=== PATIENT | female | born 1995 | race Caucasian/White ===

== ENCOUNTER 2022-02-13 12:00 | Inpatient (IN) ==
[2022-02-13] MEDS ORDERED: Azithromycin 500 MG in 0.9 % Sodium Chloride 250 ML IVPB PRN (12:38)
[2022-02-13] MEDS ORDERED: Metoclopramide 10 MG/2 ML VIAL IVP PRN (12:38)
[2022-02-13] MEDS ORDERED: miSOPROStoL 25 MCG TABLET PO PRN (12:38)
[2022-02-13] MEDS ORDERED: *HR* Nalbuphine 10 MG/ML AMPUL IV PRN (12:38)
[2022-02-13] MEDS ORDERED: Ondansetron 4 MG/2 ML VIAL IVP PRN (12:38)
[2022-02-13] MEDS ORDERED: Famotidine 20 MG/2 ML VIAL IVP PRN (12:38)
[2022-02-13] MEDS ORDERED: Naloxone 0.4 MG/ML INJ IVP PRN (12:38)
[2022-02-13 13:18] LABS: Basophils # 0.1 K/mcL (0.0-0.2); Basophils % 0.4 %; Eosinophils % 0.2 %; Hematocrit 33.9 % (35.3-44.9); Hemoglobin 11.5 g/dL (11.5-15.4); Immature Granulocytes % 0.7 % (0-4); Lymphocytes # 2.1 K/mcL (0.6-4.6); Lymphocytes % 16.9 %; Mean Corpuscular HGB Conc 33.9 g/dL (31.6-35.5); Mean Corpuscular Volume 91.4 fL (83.0-100.0); Mean Platelet Volume 11.3 fL (9.4-12.4); Monocytes # 0.7 K/mcL (0.0-1.3); Monocytes % 5.9 %; Neutrophils # 9.2 K/mcL (1.6-8.9); Nucleated Red Blood Cells 0.2 /100 WBC (0); Platelet Count 211 K/mcL (140-400); Red Blood Count 3.71 M/mcL (3.82-4.97); Red Cell Distribution Width 14.5 % (11.5-14.5); Segmented Neutrophils % 75.9 %; White Blood Count 12.1 K/mcL (4.3-11.1)
[2022-02-13 13:27] LABS: Amphetamine Screen,Urine Negative ng/mL (Cutoff=1000); Barbiturate Screen,Urine Negative ng/mL (Cutoff=200); Benzodiazepines Screen,Urine Negative ng/mL (Cutoff=200); Cannabinoid Screen,Urine Negative ng/mL (Cutoff = 50); Cocaine Screen,Urine Negative ng/mL (Cutoff= 300); Opiate Screen,Urine Negative ng/mL (Cutoff=300); Phencyclidine Screen,Urine Negative ng/mL (Cutoff=25)
[2022-02-13] MEDS ORDERED: EPHEDrine 50 MG/ML VIAL IVP PRN (13:33)
[2022-02-13] MEDS ORDERED: Epidural Premix (fent/bupiv) 110 ML EP SCH (13:45)
[2022-02-13] MEDS ORDERED: Oxytocin 30 UNIT/503 ML BAG IVC SCH (15:15)
[2022-02-13] MEDS: Ringers Solution, Lactated 1,000 ML IVC SCH (19:55)
[2022-02-13] MEDS ORDERED: Ropivacaine/PF 0.5% 30 ML VIAL ONE (22:40)
[2022-02-13] MEDS ORDERED: Ropivacaine/PF 0.2% 20 ML VIAL ONE (22:41)
[2022-02-14] MEDS ORDERED: *HR* FentaNYL (PF) 100 MCG/2 ML VIAL ONE (07:21)
[2022-02-14] MEDS ORDERED: Ropivacaine/PF 0.2% 20 ML VIAL ONE (07:21)
[2022-02-14] MEDS ORDERED: Lidocaine/EPI 1:200k 2% PF 20 ML VIAL ONE (07:21)
[2022-02-14] MEDS: Ringers Solution, Lactated 1,000 ML IVC SCH (08:31)
[2022-02-14] MEDS ORDERED: Measles/Mumps/Rubella Vacc 0.5 ML VIAL SQ PRN (13:03)
[2022-02-14] MEDS ORDERED: Rho Immune Globulin 1,500 UNIT SYRINGE IM PRN ×2 (13:03→15:39)
[2022-02-14] MEDS ORDERED: Ondansetron ODT 4 MG TAB.RAPDIS SL PRN ×2 (13:03→15:39)
[2022-02-14] MEDS ORDERED: Benzocaine/Menthol 56 GM AEROSOL SPRAY TP PRN ×2 (13:03→15:39)
[2022-02-14] MEDS ORDERED: Lanolin 7 G OINT...G. TP PRN ×2 (13:03→15:39)
[2022-02-14] MEDS ORDERED: OXYTOCIN/RINGERS LACTATE 10 UNIT/166.6 ML BAG IVC ONE ×2 (13:03→15:39)
[2022-02-14] MEDS ORDERED: Oxytocin 30 UNIT/503 ML BAG IVC SCH ×2 (13:15→15:39)
[2022-02-14] MEDS ORDERED: Acetaminophen 325 MG TABLET PO SCH (13:15)
[2022-02-14] MEDS ORDERED: Ibuprofen 600 MG TABLET PO SCH (16:04)
[2022-02-14] MEDS: Ibuprofen 600 MG TABLET PO SCH (16:51)
[2022-02-14] MEDS: Acetaminophen 325 MG TABLET PO SCH (20:50)
[2022-02-15] MEDS: Ibuprofen 600 MG TABLET PO SCH (06:03)
[2022-02-15] MEDS: Acetaminophen 325 MG TABLET PO SCH (06:05)
[2022-02-15 06:36] VITALS: BP 98/58; PULSE 84; TEMP 97.6; O2SAT 96
[2022-02-15] MEDS ORDERED: Prenatal Vit/FA 1 EACH TABLET PO SCH ×2 (09:00)
[2022-02-15] MEDS ORDERED: Loratadine 10 MG TABLET PO SCH (09:00)
== END 2022-02-15 13:42 | disposition home or self-care (01) | DRG 807 ==
LOC: 1NENULAB 12:15 → 1NENUOBS 02-14 16:23
PROVIDERS: ADMIT Registered Nurse; ATTEND Registered Nurse